=== PATIENT | female | born 1970 | race Caucasian/White ===

== ENCOUNTER 2023-12-18 14:09 | Outpatient (CLI) | payer OTHER, SELFPAY ==
--- NOTE | 2023-12-18 14:09 | US_ITS ---
FINAL REPORT TECHNIQUE: Real-time grayscale and color ultrasound of the thyroid was performed. CLINICAL HISTORY: hx hyperthyroid, nodules FINDINGS: Prior right thyroidectomy is noted. The left lobe of the thyroid measures 58 x 25 x 27 mm. The isthmus measures 2 mm. There is diffuse increased vascularity throughout the left lobe of the thyroid.. Nodules: There is an ovoid hypoechoic focus in the posterior left lobe of the thyroid measuring 22 x 16 mm, TR 4. IMPRESSION: TR 4 left thyroid nodule. Recommend tissue sampling per TI-RADS criteria. Reviewed, Interpreted and Dictated by Gordon Milner MD Transcribed by Monique Chavez Authenticated and [facility]
[2023-12-18 16:20] LABS: Free T4 (Free Thyroxine) 0.69 ng/dl (0.78-2.19)
== END 2023-12-18 23:59 | disposition home or self-care (01) ==
PROVIDERS: PCP Family Medicine; Visit Provider Nurse Practitioner
DX: E04.1 Nontoxic single thyroid nodule (principal); E05.90 Thyrotoxicosis, unspecified without thyrotoxic crisis or storm
CPT/HCPCS: 36415; 76536; 84439; 84443

== ENCOUNTER 2024-01-22 16:14 | Outpatient (CLI) | payer OTHER, SELFPAY ==
--- NOTE | 2024-01-22 16:29 | ECG_ITS ---
APPROVED REPORT Exam: Resting ECG HR:60 bpm ECG Measurements Heart Rate 60 AXES PA 167 P 62 QRSd 86 QRS 78 QT 393 T 82 QTc 394 Conclusion SINUS RHYTHM NORMAL ECG UNCONFIRMED REPORT Electronically signed by : Michael Cabral MD 01/23/2024 08:31:48
[2024-01-22 16:39] LABS: Basophils # 0.2 K/mm3 (0-0.2); Basophils % 2.3 % (0.1-2.0); Eosinophils # 0.3 K/mm3 (0.0-0.4); Eosinophils % 2.8 % (0.1-12.0); Hematocrit 43.1 % (37.0-47.0); Hemoglobin 14.2 g/dL (12.2-16.2); Lymphocytes # 1.6 K/mm3 (0.7-4.5); Lymphocytes % 18.7 % (10-50); Mean Corpuscular Hemoglobin 30.8 pg (27.0-31.2); Mean Corpuscular Volume 93.6 fl (81-99); Monocytes # 0.5 K/mm3 (0.1-1.0); Monocytes % 5.3 % (1.7-9.3); Neutrophils # 6.2 K/mm3 (1.8-7.8); Neutrophils % 70.8 % (37.0-80.0); Platelet Count 346 K/mm3 (142-424); White Blood Count 8.7 K/mm3 (4.8-10.8)
[2024-01-22 16:51] LABS: Albumin Level 4.4 g/dl (3.5-5.0); Chloride 107 mmol/L (98-107); Potassium 3.6 mmoL/L (3.5-5.1); Sodium 138 mmol/L (136-145)
[2024-01-22 16:53] LABS: Blood Urea Nitrogen 7 mg/dl (7-17); Estimated Glomerular Filt Rate 88 ml/min (>60); GFR (African American) 106 ML/MIN (>60)
[2024-01-22 16:54] LABS: Alanine Aminotransferase 17 U/L (12-78); Albumin/Globulin Ratio 1.5 (1.1-1.8); Alkaline Phosphatase 97 U/L (38-126); Anion Gap 6.6 mEq/L (5-15); Aspartate Amino Transferase 26 U/L (14-36); Bilirubin,Total 0.5 mg/dl (0.2-1.3); Carbon Dioxide 28 mmol/L (22.0-30.0); Total Protein,Serum 7.4 g/dl (6.3-8.2)
[2024-01-22 17:01] LABS: Glucose 84 mg/dl (74-100)
[2024-01-22 17:02] LABS: Calcium 8.8 mg/dl (8.4-10.2)
== END 2024-01-22 23:59 | disposition home or self-care (01) ==
LOC: RT 16:17
PROVIDERS: Nurse Practitioner; PCP Family Medicine; Visit Provider Student in an Organized Health Care Education/Training Program
DX: Z01.818 Encounter for other preprocedural examination (principal)
CPT/HCPCS: 36415; 80053; 85025; 93005

== ENCOUNTER 2024-01-27 06:53 | Day surgery (SDC) | payer OTHER, SELFPAY ==
[2024-01-22 09:26] VITALS: BMI 29.2
[2024-01-27] VITALS (11 sets, daily range): BP systolic 113–132; BP diastolic 76–89; PULSE 60–85; RESP 12–18; TEMP 36.1–36.7; O2SAT 91–97
--- NOTE | 2024-01-27 07:41 | EXP.ANES.CKL ---
[facility] Disclaimer: The information contained in this section may have been updated after the patient was seen, as this information can be updated by other users. Medical History Neck pain Hyperthyroidism Thyroid nodule Hot flashes due to menopause Surgical History History of ear surgery Hx of section Hx of cholecystectomy H/O abdominal hysterectomy Family History Other Family history of cancer Social History (Updated 01/27/24 @ 07:21 by Vane Whipple RN) Smoking Status: Current every day smoker tobacco type: cigarettes packs per day: 1 alcohol intake: never substance use type: denies use current occupational status: employed Travel in the last 8 weeks: None [facility] Anesthesia Checklist Patient Identification Patient Identification: Arm Band Structural Data Admitted From: Home Planned Operative Procedure/s: Completion Thyroidectomy Consent for Planned Operative Procedure(s) Verified: Yes Verified Documents: Surgical Consent and History and Physical NPO Status Verified Time NPO: 00:00 Additional verifications Anesthesia Reactions: No Hx Blood Transfusions: No Blood Transfusion Reaction: No Airway Assessment Mallampati Score:: Class II C-Spine Mobility Assessed: Yes TMJ Mobility Assessed: Yes Dentition: Edentulous Neurological Assessment Level of Consciousness: Awake, Alert and Appropriate Anesthesia Plan Anesthesia Risk discussed: Yes Anesthesia Plan: Verified ASA Class: II Anesthesia Type: General
[2024-01-27] MEDS: LACTATED RINGERS 1000ML 1,000 ML 25 ML IV (07:54)
[2024-01-27] MEDS: CEFAZOLIN SODIUM 2 GM in 0.9 % SODIUM CHLORIDE 100 ML IV (08:55)
[2024-01-27] MEDS: LIDOCAINE 1% W/EPI 1:100,000 20ML VIAL 20 ML (08:55)
--- NOTE | 2024-01-27 11:09 | EXP.OP.NOTE ---
Date of procedure: 01/27/24 Pre-op Diagnosis:: hyperthyroidism Post-op Diagnosis:: same Procedure performed:: completion thyroidectomy Surgeon:: Francisco Guidry MD Anesthesia: GETA Estimated blood loss (mL): 20 Operative findings:: hypervascular left lobe, nodule in superior lobe Operative note:: The patient was brought to the OR, laid in the supine position, and general anesthesia with a Nims nerve monitoring endotracheal tube was induced.? Nerve monitor was set up and confirmed to be working appropriately.? Patient was prepped and draped in usual fashion.? Lidocaine with epinephrine 1-100,000 was injected below the incision site.?I utilized the same scar/incision from her previous surgery. I dissected through the skin, subcutaneous tissues, and platysma.? The strap muscles were identified at the midline raphae.? The strap muscles were divided at the raphae. ? I then began to dissect the strap muscles off of the left side of the thyroid. The patient had a significant amount of scar tissue on between the strap muscles and the thyroid, particularly at the superior lobe. ? I ultimately after much dissection was able to isolate the superior pedicle and was taken down with a harmonic.?She had a fairly firm nodule in the superior lobe.? We then came inferiorly again freeing thyroid from the surrounding tissue.? I then began to roll the thyroid in a lateral to medial fashion out of the patient's neck. The patient's lobe was hypervascular.? The recurrent laryngeal nerve was identified in its usual location and preserved during this process.? I dissected through Busby's ligament and dissected the lobe off the trachea. It was sent for permanent pathology.? Patient's neck was then thoroughly irrigated out.? Hemostasis was achieved with bipolar cautery.? The recurrent laryngeal nerve stimulated both proximally and distally at the end of the case.? 15 [place]ian drain was fashioned in the patient's neck.? The incision was then closed in 2 layers.? They were then turned back over to anesthesia to be awoken and extubated. Condition: stable Disposition: PACU Complications:: none
--- NOTE | 2024-01-27 11:13 | EXP.ANES.I ---
[facility] Anesthesia Record Part I Anesthesia Record I Intake, IV Amount: 1,000 Hydration: Adequate Estimated blood loss (mL): 20 Urine output (mL): 0 Blood Pressure: 123/85 SaO2: 92 Pulse Rate: 73 Airway Patency: Patent Respiratory Rate: 16 Temperature: 97.3 F Patient is:: Drowsy Stable to PACU at:: 11:10
[2024-01-27] MEDS: HYDROMORPHONE 2MG/ML SYRINGE 0.5 MG IV (11:40)
--- NOTE | 2024-01-28 09:33 | P.PNANES_ITS ---
[facility] Anesthesia Record Part II Anesthesia Record Part II Discharge Time: 11:40 Destination: floor PACU nurse assessment reviewed?: Yes Patient Condition:: Good Anesthesia Complications:: None Swallowing reflex intact?: Yes Airway Patency: Patent Cyanosis?: No Blood Pressure: 124/81 SaO2: 97 Respiratory Rate: 18 Pulse Rate: 79 Temperature: 97 F Mental Status: Alert & Oriented Pain level:: 3 Nausea and/or vomitting:: None Intake, IV Amount: 2,200 Hydration: Adequate
[2024-01-28 09:34] VITALS: BP 124/81; PULSE 79; RESP 18; TEMP 36.1; O2SAT 97
== END 2024-01-27 13:00 | disposition home or self-care (01) ==
PROVIDERS: PCP Family Medicine; Visit Provider Student in an Organized Health Care Education/Training Program
PROC: (CPT 60260; principal; 2024-01-27 08:30)
DX: E05.90 Thyrotoxicosis, unspecified without thyrotoxic crisis or storm (principal)
CPT/HCPCS: 60260; 96374; J3490; J0131; J0690; J1100; J1170; J2250; J2405; J3010; J7120

== ENCOUNTER 2024-03-01 11:10 | Outpatient (CLI) | payer OTHER, SELFPAY ==
[2024-03-01 18:44] LABS: Chloride 110 mmol/L (98-107)
[2024-03-01 18:45] LABS: Albumin Level 3.9 g/dl (3.5-5.0); Sodium 141 mmol/L (136-145)
[2024-03-01 18:47] LABS: Blood Urea Nitrogen 14 mg/dl (7-17); Estimated Glomerular Filt Rate 88 ml/min (>60); GFR (African American) 106 ML/MIN (>60)
[2024-03-01 18:48] LABS: Alanine Aminotransferase 16 U/L (12-78); Albumin/Globulin Ratio 1.5 (1.1-1.8); Alkaline Phosphatase 110 U/L (38-126); Aspartate Amino Transferase 19 U/L (14-36); Bilirubin,Total 0.4 mg/dl (0.2-1.3); Calcium 8.8 mg/dl (8.4-10.2); Carbon Dioxide 26 mmol/L (22.0-30.0); Globulin 2.6 g/dL (1.3-3.2); Glucose 118 mg/dl (74-100); Total Protein,Serum 6.5 g/dl (6.3-8.2)
[2024-03-01 19:18] LABS: Thyroid Stimulating Hormone 0.03 uIU/mL (0.465-4.68)
== END 2024-03-01 23:59 | disposition home or self-care (01) ==
LOC: LAB.DROPOF 03-02 10:03
PROVIDERS: PCP Family Medicine; Visit Provider Family Medicine
DX: E89.0 Postprocedural hypothyroidism (principal)
CPT/HCPCS: 80053; 84443

== ENCOUNTER 2024-05-18 09:13 | Outpatient (CLI) | payer OTHER, SELFPAY ==
--- NOTE | 2024-05-18 09:16 | XR_ITS ---
FINAL REPORT CLINICAL HISTORY: cough, SOB, wheezing, bronchitis FINDINGS: CHEST 2 VIEWS PA AND LATERAL The heart is normal in size. The mediastinum is unremarkable. There is scarring at the right base. There is no pneumothorax. IMPRESSION: No acute process. Reviewed, Interpreted and Dictated by Gordon Milner MD Transcribed by Chanell Shabazz Authenticated and [facility]
== END 2024-05-18 23:59 | disposition home or self-care (01) ==
LOC: RAD 09:15
PROVIDERS: PCP Family Medicine; Visit Provider Nurse Practitioner
DX: J40 Bronchitis, not specified as acute or chronic (principal); R05.9 Cough, unspecified; R06.2 Wheezing
CPT/HCPCS: 71046

== ENCOUNTER 2024-08-16 13:55 | Outpatient (CLI) | payer OTHER, SELFPAY | END 2024-08-16 23:59 | disposition home or self-care (01) | LOC: LAB.DROPOF 08-17 09:48 | PROVIDERS: PCP Nurse Practitioner; Visit Provider Nurse Practitioner | DX: M54.50 Low back pain, unspecified (principal) | CPT/HCPCS: 87086 ==

== ENCOUNTER 2024-11-22 16:05 | Outpatient (CLI) | payer OTHER, SELFPAY ==
[2024-11-22 20:32] LABS: Uric Acid 3.9 mg/dl (2.5-6.2)
[2024-11-22 21:04] LABS: Thyroid Stimulating Hormone 0.03 uIU/mL (0.465-4.68)
== END 2024-11-22 23:59 | disposition home or self-care (01) ==
LOC: LAB.DROPOF 11-23 11:07
PROVIDERS: PCP Family Medicine; Visit Provider Family Medicine
DX: M25.572 Pain in left ankle and joints of left foot (principal); G89.29 Other chronic pain; E03.9 Hypothyroidism, unspecified
CPT/HCPCS: 84443; 84550

== ENCOUNTER 2024-11-23 13:08 | Outpatient (CLI) | payer OTHER, SELFPAY ==
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
== END 2024-11-23 23:59 | disposition home or self-care (01) ==
LOC: RT 13:09
PROVIDERS: PCP Family Medicine; Visit Provider Family Medicine
DX: M79.672 Pain in left foot (principal); M25.572 Pain in left ankle and joints of left foot; G89.29 Other chronic pain; R60.0 Localized edema; F17.200 Nicotine dependence, unspecified, uncomplicated
CPT/HCPCS: 93971

== ENCOUNTER 2024-11-28 11:37 | Outpatient (CLI) | payer OTHER, SELFPAY ==
--- NOTE | 2024-11-28 11:40 | XR_ITS ---
FINAL REPORT CLINICAL HISTORY: Left foot pain COMPARISON: None FINDINGS: LEFT FOOT Three views demonstrate no acute fracture or dislocation. There is mild narrowing of the first metatarsophalangeal joint. No acute soft tissue abnormality is seen. There is a minimal plantar spur. IMPRESSION: Mild osteoarthritis of the first metatarsophalangeal joint. Reviewed, Interpreted and Dictated by Gordon Milner MD Transcribed by Parul Hamilton Authenticated and [facility]
== END 2024-11-28 23:59 | disposition home or self-care (01) ==
LOC: RAD 11:38
PROVIDERS: PCP Family Medicine; Visit Provider Nurse Practitioner Family
DX: M19.072 Primary osteoarthritis, left ankle and foot (principal)
CPT/HCPCS: 73630

== ENCOUNTER 2024-12-03 18:58 | Emergency (ER) | payer OTHER, SELFPAY ==
[2024-12-03 19:18] VITALS: BP 143/95; PULSE 84; RESP 18; TEMP 36.9; O2SAT 97; BMI 28.3
[2024-12-03 19:22] VITALS: BP 143/95; PULSE 84; RESP 18; TEMP 36.3; O2SAT 100
--- NOTE | 2024-12-03 19:43 | XR_ITS ---
PROCEDURE INFORMATION: Exam: XR Left Foot Exam date and time: 12/03/2024 7:49 PM Age: 54 years old Clinical indication: Pain; Ankle; Left TECHNIQUE: Imaging protocol: Radiologic exam of the left foot. Views: 3 or more views. COMPARISON: CR XR FOOT WT BEARING LT 3V 11/28/2024 11:41 AM FINDINGS: Bones/joints: No acute fracture. Mild degenerative changes of first MTP joint. Scattered early to mild degenerative changes of interphalangeal joints. No dislocation. Tiny posterior and plantar calcaneal enthesophytes. Soft tissues: Unremarkable. IMPRESSION: No fracture. If pain persists, suggest splinting and follow up radiographs in 7-10 days.
--- NOTE | 2024-12-03 19:43 | XR_ITS ---
PROCEDURE INFORMATION: Exam: XR Left Ankle Exam date and time: 12/03/2024 7:49 PM Age: 54 years old Clinical indication: Pain; Ankle; Left; Additional info: Ankle pain TECHNIQUE: Imaging protocol: Radiologic exam of the left ankle. Views: 3 or more views. COMPARISON: No relevant prior studies available. FINDINGS: Bones/joints: No acute fracture. No dislocation. Tiny posterior and plantar calcaneal enthesophytes. No significant joint effusion. Soft tissues: Unremarkable. IMPRESSION: No fracture. If pain persists, suggest splinting and follow up radiographs in 7-10 days.
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
[2024-12-03] MEDS: ONDANSETRON 4MG ODT 4 MG SL (19:56)
[2024-12-03] MEDS: HYDROCODONE/APAP 5/325 MG TABLET 2 TAB PO (19:57)
[2024-12-03] MEDS: KETOROLAC 60MG/2ML VIAL 60 MG IM (20:00)
--- NOTE | 2024-12-03 21:33 | PC.NURSE ---
Pt states that it is taking too long for the x-ray results and that they have other matters to attend to. Walking boot applied by Breana OAKLEY. Pt signs AMA paper form.
[2024-12-03 21:37] VITALS: BP 130/88; PULSE 88; RESP 18; TEMP 36.6; O2SAT 98
== END 2024-12-03 21:35 | disposition left against medical advice (07) ==
PROVIDERS: Emergency Provider Student in an Organized Health Care Education/Training Program; PCP Family Medicine
DX: M25.572 Pain in left ankle and joints of left foot (principal); F17.210 Nicotine dependence, cigarettes, uncomplicated; V00.831A Fall from motorized mobility scooter, initial encounter
CPT/HCPCS: 73610; 73630; 96372; 99283; J1885; Q0162

== ENCOUNTER 2024-12-20 14:21 | Outpatient (CLI) | payer OTHER, SELFPAY ==
[2024-12-20 19:18] LABS: Influenza A, PCR Not Detected (NotDetected); Influenza B, PCR Not Detected (NotDetected)
[2024-12-20 19:36] LABS: Hematocrit 39.1 % (37.0-47.0); Hemoglobin 12.1 g/dL (12.2-16.2); Immature Granulocytes % 0.3 %; Mean Corpuscular HGB Conc 30.9 g/dL (31.8-35.4); Mean Corpuscular Hemoglobin 28.3 pg (27.0-31.2); Mean Corpuscular Volume 91.6 fl (81-99); Nucleated Red Blood Cells % 0 %; Platelet Count 293 K/mm3 (142-424); Red Blood Count 4.27 M/mm3 (4.20-5.40); Red Cell Distribution Width-SD 42.8 fL; White Blood Count 3.9 K/mm3 (4.8-10.8)
[2024-12-20 20:02] LABS: Anion Gap 11.5 mEq/L (5-15); Blood Urea Nitrogen 10 mg/dl (7-17); Calcium 8.5 mg/dl (8.4-10.2); Carbon Dioxide 24 mmol/L (22.0-30.0); Chloride 105 mmol/L (98-107); Creatinine,Serum 0.70 mg/dl (0.52-1.04); Estimated Glomerular Filt Rate 87 ml/min (>60); GFR (African American) 106 ML/MIN (>60); Glucose 92 mg/dl (74-100); Potassium 3.5 mmoL/L (3.5-5.1); Sodium 137 mmol/L (136-145)
[2024-12-20 20:06] LABS: Coronavirus 19, PCR Detected (NotDetected)
[2024-12-20 20:30] LABS: RBC Morphology Normal
[2024-12-20 20:31] LABS: Total Cells Counted 100
== END 2024-12-20 23:59 | disposition home or self-care (01) ==
LOC: LAB.DROPOF 12-21 12:35
PROVIDERS: PCP Nurse Practitioner; Visit Provider Nurse Practitioner
DX: J06.9 Acute upper respiratory infection, unspecified (principal)
CPT/HCPCS: 80048; 85007; 85025; 87636

== ENCOUNTER 2024-12-31 21:38 | Emergency (ER) | payer OTHER, SELFPAY ==
[2024-12-31] VITALS (7 sets, daily range): BP systolic 139–157; BP diastolic 87–97; PULSE 81–94; RESP 16; TEMP 36.6; O2SAT 96–99; BMI 29.2
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
[2024-12-31] MEDS: LIDOCAINE 1% 10ML MDV 10 ML SUBCUT (22:31)
[2024-12-31] MEDS: ACETAMINOPHEN 500MG TAB 1000 MG PO (22:31)
[2024-12-31] MEDS: IBUPROFEN 600 MG TABLET PO (22:31)
[2024-12-31] MEDS: TET/DIPHTH/PERT-ADULT 0.5ML SYRINGE 0.5 ML IM (22:54)
[2024-12-31] MEDS: BACITRACIN ZINC OINT 30GM TUBE TP (23:43)
[2025-01-01 00:32] VITALS: BP 139/91; PULSE 79; RESP 16; TEMP 36.6; O2SAT 98
== END 2025-01-01 00:32 | disposition home or self-care (01) ==
PROVIDERS: Emergency Provider Student in an Organized Health Care Education/Training Program; PCP Nurse Practitioner
DX: S51.812A Laceration without foreign body of left forearm, initial encounter (principal)
CPT/HCPCS: 12002; 70450; 71045; 72125; 72170; 73080; 73090; 90471; 90715; 99284; J2003

== ENCOUNTER 2025-01-16 16:36 | Outpatient (CLI) | payer OTHER, SELFPAY ==
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
== END 2025-01-16 23:59 | disposition home or self-care (01) ==
LOC: RAD 16:38
PROVIDERS: PCP Family Medicine; Visit Provider Nurse Practitioner
DX: M54.2 Cervicalgia (principal); R93.7 Abnormal findings on diagnostic imaging of other parts of musculoskeletal system
CPT/HCPCS: 72141

== ENCOUNTER 2025-01-18 10:52 | Outpatient (CLI) | payer OTHER, SELFPAY ==
[2025-01-18 17:37] LABS: Thyroid Stimulating Hormone 0.70 uIU/mL (0.465-4.68)
== END 2025-01-18 23:59 ==
LOC: LAB.DROPOF 01-20 10:53
PROVIDERS: PCP Family Medicine; Visit Provider Family Medicine
DX: E03.9 Hypothyroidism, unspecified (principal)
CPT/HCPCS: 84443

== ENCOUNTER 2025-02-02 12:52 | Outpatient (RCR) | payer OTHER, SELFPAY ==
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
== END 2025-02-02 23:59 | disposition home or self-care (01) ==
LOC: PT 12:52
PROVIDERS: Visit Provider Podiatrist
DX: M72.2 Plantar fascial fibromatosis (principal); M76.72 Peroneal tendinitis, left leg
CPT/HCPCS: 97162

== ENCOUNTER 2025-04-10 08:39 | Outpatient (CLI) | payer OTHER, SELFPAY ==
--- OUTSIDE RECORDS SUMMARY | 2025-02-13 09:00 | XMS_ITS | Encounter Summary ---
Author Organization [facility] [place] [address] Care Team Providers Care Rivet Thrower Name Role Phone Unavailable Primary Care Provider Unavailabl e Reason for Visit * Reason Comments Hypothyroidism Encounter Details Date Type Department Care Team (Latest Contact Info) Description 02/13/2025 10:00 AM EDT Office Visit [facility] [address] [facility] [address] [place] [phone] Devon Beaulieu MD [address] [place] [address] Post-operative hypothyroidism (Primary Dx); Graves disease Social [...] Description 02/14/2026 2:00 PM EDT Office Visit [facility] [place] [address] [facility] [address] [place] [id number] Devon Beaulieu MD [address] [place] [address] Scheduled Orders Name Type Priority Associated Diagnoses [...]
[2025-04-10 21:44] LABS: Alanine Aminotransferase 16 U/L (12-78); Albumin Level 4.3 g/dl (3.5-5.0); Albumin/Globulin Ratio 1.5 (1.1-1.8); Alkaline Phosphatase 129 U/L (38-126); Anion Gap 10.0 mEq/L (5-15); Aspartate Amino Transferase 19 U/L (14-36); Bilirubin,Total 0.8 mg/dl (0.2-1.3); Blood Urea Nitrogen 26 mg/dl (7-17); Calcium 8.9 mg/dl (8.4-10.2); Carbon Dioxide 25 mmol/L (22.0-30.0); Chloride 106 mmol/L (98-107); Creatinine,Serum 0.80 mg/dl (0.52-1.04); Estimated Glomerular Filt Rate 75 ml/min (>60); GFR (African American) 90 ML/MIN (>60); Globulin 2.9 g/dL (1.3-3.2); Glucose 83 mg/dl (74-100); Potassium 4.0 mmoL/L (3.5-5.1); Sodium 137 mmol/L (136-145); Total Protein,Serum 7.2 g/dl (6.3-8.2)
[2025-04-10 22:02] LABS: Free T4 (Free Thyroxine) 1.42 ng/dl (0.78-2.19)
[2025-04-10 22:15] LABS: Thyroid Stimulating Hormone 2.23 uIU/mL (0.465-4.68)
--- OUTSIDE RECORDS SUMMARY | 2025-04-12 08:53 | XMS_ITS | Clinical Summary ---
Author Organization [facility] Address [address] [place] [address] Phone Care Team Providers Care Nurse'S Aides Teacher Name Role Phone Unavailable Primary Care Provider Unavailabl e Allergies Active Allergy Reactions Criticality Noted Date Comments Erik Inhibitors Cough,Other (See Comments) Medium 08/27 Sulfa (Sulfonamide Antibiotics) 06/09/2015 Medications PROAIR HFA 90 mcg/actuation Inhl HFA Aerosol Inhaler INHALE TWO (2) PUFFS EVERY FOUR (4) HOURS BY INHALATION ROUTE NEEDED. 2 Active PARoxetine (PAXIL) 10 mg Oral Tablet TAKE ONE (1) TABLET EVERY DAY BY ORAL ROUTE FOR 90 DAYS. 2 Active cyanocobalamin, vitamin B-12, 5,000 mcg SL Tablet, Sublingual Place under the tongue. Active aspirin 81 mg Oral Tablet, Chewable Take 81 mg by mouth daily. Active HYDROcodone-erik taminophen (NORCO) 5-325 mg Oral Tablet Take 1 Tablet by mouth every 6 hours as needed for Acute Pain (R52). 4 Active GUAIFENESIN ORAL Take 600 mg by mouth 2 times daily. Active LEVOthyroxine (SYNTHROID) 112 mcg Oral Tablet Take 1 Tablet by mouth daily. 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 Chest pain due to myocardial ischemia 01/30/2019 Overview (01/31/2019): Added automatically from request for surgery [id number] Chest pain Encounters Date Type Department Care Team Description 02/13/2025 10:00 AM EDT Office Visit [facility] [address] [address] [place] [address] Devon Beaulieu MD Post-operative hypothyroidism (Primary Dx); Graves disease 02/08/2025 Telephone [facility] [address] [facility] [address] [place] [address] Devon Beaulieu MD Labs Only from Last 3 Months Surgical History Surgery Date Site/Laterality Comments HYSTERECTOMY THYROID SURGERY 1/2 thyroid removed Medical History Medical History Date Comments Pneumonia age 12 had PNA Angina pectoris Heartburn takes zantac OTC for heart burn Thyroid disease Family History Medical History Relation Name Comments Emphysema Father Relation Name Status Comments Father Mother Alive Social History Tobacco Use Types Packs/Day Years Used Date Smoking Tobacco: Former Cigarettes 1 37 0 05/02/1987 - 05/16/2024 Smokeless Tobacco: Never Tobacco Cessation:Counseling Given: Not Answered Alcohol Use Standard Drinks/Week Comments No 0 (1 standard drink = 0.6 oz pur e alcohol) Comments No Sex and Gender Information Value Date Recorded Sex Assigned at Not on file Legal Sex Female 11:26 PM EDT Gender Identity Not on file Sexual Orientation Not on file Obstetrics History Para Term AB IAB SAB Ectopic Multiple Livin g Live Births 1 1 1 Date Outcome GA Total Labor Labor/2nd/3rd Weight Sex Type Anes PTL Juanita A1 A5 Name Clin Term Last Filed Vital Signs Vital Sign Reading Time Taken Comments Blood Pressure 126/74 02/13/2025 10:16 AM EDT Pulse 93 02/13/2025 10:16 AM EDT Temperature 36.7 C (98 F) 09/30/2022 1:35 PM EDT Respiratory Rate 16 02/13/2025 10:16 AM EDT Oxygen Saturation 98% 09/30/2022 1:24 PM EDT Inhaled Oxygen Concentration - - Weight 77.6 kg (171 lb) 02/13/2025 10:16 AM EDT Height 162.6 cm (5' 4 ) 02/13/2025 10:16 AM EDT Body Mass Index 29.35 02/13/2025 10:16 AM EDT Plan of Treatment Upcoming Encounters Date Type Department Care Team (Late st Contact Info) Description 02/14/2026 2:00 PM EDT Office Visit [facility] [place] [address] [facility] [address] [place] [address] Devon Beaulieu MD [address] [place] [address] Health Maintenance Due Date Last Done Comments Annual Wellness Exam 1973 DTaP/TDaP/Td (1 - Tdap) 1989 Hepatitis B Vaccine (1 of 3 - 19+ 3-dose series) 1989 Cervical Cancer Screening 1991 Pap Smear 1991 HPV/Pap Cotest 2000 Breast Cancer Screening 2010 Cologuard 2015 Colon Cancer Screening 2015 Colonoscopy 2015 FIT 2015 Sigmoidoscopy 2015 Virtual Colonography 2015 Low Dose Lung Cancer Screening 2020 Pneumococcal Vaccine 50+ (1 of 1 - PCV) 2020 Zoster (1 of 2) 2020 COVID-19 Vaccine (3 - 2024-2 6 season) 2024 01/08/2021, 12/18/2020 Influenza Vaccine (#1) 2024 Meningococcal B Vaccine Aged Out No l onger eligible based on patient's age to complete this topic Procedures Procedure Name Priority Date/Time Associated Diagnosis Comments THYROID STIMULATING HORMONE Routine 01/18/2025 from Last 3 Months Results * THYROID STIMULATING HORMONE (01/18/2025) TSH 0.700 0.400 - 4.500 MCIU/ML SEP OFFICE Comment:0.465-4.68 Blood VENOUS BLOOD / Unknown 01/18/2025 us Adan Barakat MD CHEMISTRY ORDERABLES Final Res ult SEP OFFICE from Last 3 Months Insurance
== END 2025-04-10 23:59 | disposition home or self-care (01) ==
LOC: LAB.DROPOF 04-12 08:39
PROVIDERS: PCP Family Medicine; Visit Provider Nurse Practitioner
DX: E03.9 Hypothyroidism, unspecified (principal); R42 Dizziness and giddiness
CPT/HCPCS: 80053; 84439; 84443; 85025

== ENCOUNTER 2025-04-11 11:06 | Outpatient (CLI) | payer OTHER, SELFPAY ==
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
[2025-04-11 15:04] LABS: Hematocrit 42.4 % (37.0-47.0); Hemoglobin 13.6 g/dL (12.2-16.2); Immature Granulocytes % 0.4 %; Mean Corpuscular HGB Conc 32.1 g/dL (31.8-35.4); Mean Corpuscular Hemoglobin 28.6 pg (27.0-31.2); Mean Corpuscular Volume 89.3 fl (81-99); Nucleated Red Blood Cells % 0 %; Platelet Count 380 K/mm3 (142-424); Red Blood Count 4.75 M/mm3 (4.20-5.40); Red Cell Distribution Width-SD 42.5 fL; White Blood Count 9.2 K/mm3 (4.8-10.8)
--- OUTSIDE RECORDS SUMMARY | 2025-04-12 19:34 | XMS_ITS | Clinical Summary ---
Author Organization [facility] Address [address] [place] [address] Phone Care Team Providers Care Fourth Mate Name Role Phone Unavailable Primary Care Provider [...] (01/31/2019): Added automatically from request for surgery [id number] Chest pain Encounters Date Type Department Care Team Description 02/13/2025 10:00 AM EDT Office Visit [facility] [address] [facility] [address] [place] [address] Devon Beaulieu MD Post-operative hypothyroidism (Primary Dx); Graves disease 02/08/[address] [facility] [address] [facility] [address] [place] [address] Devon Beaulieu MD Labs Only [...] Description 02/14/2026 2:00 PM EDT Office Visit [facility] [place] [address] [facility] [address] [place] [address] Devon Beaulieu MD [address] [place] [address] Health Maintenance Due Date Last [...]
== END 2025-04-11 23:59 | disposition home or self-care (01) ==
LOC: LAB.DROPOF 04-12 19:32
PROVIDERS: PCP Family Medicine; Visit Provider Nurse Practitioner
DX: E03.9 Hypothyroidism, unspecified (principal); R42 Dizziness and giddiness
CPT/HCPCS: 85025